=== PATIENT | female | born 1955 | race African-American/Black ===

== ENCOUNTER 2020-07-14 11:56 | Outpatient (CLI) | payer BC ==
--- NOTE | 2020-07-14 13:55 | MRI ---
MRI of thecervical spine: 07/14/2020 COMPARISON:None available HISTORY:Cervical radiculopathy, cervical pain radiating to bilateral shoulders, right greater than le ft TECHNIQUE: Multiplanar multisequence MR imaging of thecervical spine without contrast Findings:The sagittal STIR imaging demonstrates no focal area of osseous marrow edema. C2-3: There is mild disc space narrowing and mild bilateral facet hypertrophy. No significant central canal or neural foraminal stenosis. C3-4: There is disc space narrowing with disc desiccation and disc bulge. There is a superimposed maría tral disc protrusion which effaces the ventral thecal sac and abuts the ventral aspect of the cervical cord with mild central canal stenosis and mild narrowing. There is mild right and moderate l eft neural foraminal stenosis. C4-5: There is disc space narrowing with disc desiccation and disc bulge. Superimposed small left par acentral disc protrusion. There is moderate central canal stenosis with effacement of the ventral thecal sac and disc material abutting the ventral aspect of the cord. Facet and uncovertebral osteophyte formation causes moderate/severe bilateral neural foraminal stenos is, left greater than right. C5-6: There is disc space narrowing with disc desiccation and anterior osteophyte formation. There is prominent disc bulge with superimposed left paracentral disc protrusion causing severe central canal stenosis with flattening of the cervical cord. There is a focal area of increased T2 signal wit hin the cervical cord at the C5-6 level suggesting acute cord edema and/or myelomalacia.. Moderate/severe bilateral neural foraminal stenosis. C6-7: There is disc space narrowing with disc desiccation, disc bulge, and a central/left paracentral disc protrusion effacing the ventral thecal sac and abutting the ventral aspect of the cord with moderate central canal stenosis. There is moderate right and mild left neural foraminal stenosis. C7-T1: There is disc desiccation with mild disc space narrowing. There is mild bilateral facet hypert rophy. Mild bilateral neural foraminal stenosis. No central canal stenosis. The thyroid gland is enlarged and heterogeneous with numerous T2 hyperintense nodules, measuring up t o 1.5 cm on the left. Follow-up thyroid ultrasound advised. IMPRESSION:Prominent multilevel cervical spine degenerative change. This includes C5-6 disc pathology leading to severe central canal stenosis with cord flattening and a focus of increased T2 signal within the cord suggesting edema. Abnormal thyroid gland for which thyroid ultrasound is advised. Results discussed with Dr. Adama Pedraza at 1:50 PM 07/14/2020
== END 2020-07-14 11:57 | disposition home or self-care (01) ==
LOC: BICMRI 11:56
PROVIDERS: ATTEND Neurological Surgery
DX: M47.22 Other spondylosis with radiculopathy, cervical region (principal); M48.02 Spinal stenosis, cervical region; M47.813 Spondylosis without myelopathy or radiculopathy, cervicothoracic region; R94.6 Abnormal results of thyroid function studies
CPT/HCPCS: 72141

== ENCOUNTER 2020-12-26 15:02 | Outpatient (CLI) | payer MEDICARE ==
[2020-12-26 17:16] LABS: Anion Gap 15 mmol/L (10-20); BUN (Urea Nitrogen) 25 mg/dL (9.8-20.1); Calc. Creatinine Clearance 0 mL/min (70-130); Calcium 10.2 mg/dL (7.8-10.44); Carbon Dioxide 27 mmol/L (23-31); Chloride 104 mmol/L (98-107); Glucose 94 mg/dL (80-115); Potassium 4.3 mmol/L (3.5-5.1); Sodium 142 mmol/L (136-145)
[2020-12-27 13:27] LABS: SARS-CoV-2 PCR by NAA Not Detected (NotDetected)
== END 2020-12-26 15:03 | disposition home or self-care (01) ==
LOC: LABBT 15:02
PROVIDERS: ATTEND Neurological Surgery
DX: Z01.818 Encounter for other preprocedural examination (principal); M54.16 Radiculopathy, lumbar region; Z20.822 Contact with and (suspected) exposure to COVID-19
CPT/HCPCS: 80048; 93005; U0003; U0005; 93010

== ENCOUNTER 2023-02-05 11:58 | Outpatient (CLI) | payer OTHER | END 2023-02-05 11:59 | disposition home or self-care (01) | LOC: BICCT 11:58 | PROVIDERS: ATTEND Neurological Surgery | DX: M54.16 Radiculopathy, lumbar region (principal) | CPT/HCPCS: 72131 ==

== ENCOUNTER 2023-02-28 14:30 | Inpatient (IN) | payer OTHER ==
[2023-03-05] MEDS ORDERED: Bupivacaine PF 0.5% 30 ML VIAL ONE (08:41)
[2023-03-05] MEDS ORDERED: EPINEPHrine 1 MG/ML AMP ONE (08:41)
[2023-03-05] MEDS ORDERED: fentaNYL PF 100 MCG/2 ML SYRINGE ONE (09:34)
[2023-03-05] MEDS ORDERED: HYDROmorphone 0.5 MG/0.5 ML SYRINGE ONE (09:34)
[2023-03-05] MEDS ORDERED: Phenylephrine 10 MG/ML VIAL ONE (09:43)
[2023-03-05] MEDS ORDERED: Glycopyrrolate 0.2 MG/ML 5 ML SYRINGE ONE (10:01)
[2023-03-05] MEDS ORDERED: Ondansetron PF 4 MG/2 ML Vial ONE ×2 (10:01→18:54)
[2023-03-05] MEDS ORDERED: Rocuronium Bromide 10 MG/ML (10ML VIAL) ONE (10:01)
[2023-03-05] MEDS ORDERED: Lidocaine 1% PF 5 ML VIAL ONE (10:01)
[2023-03-05] MEDS ORDERED: PROPOFOL 200 MG/20 ML VIAL ONE (10:01)
[2023-03-05] MEDS ORDERED: NEOSTIGMINE 3 MG/3 ML SYR 3 MG/3 ML SYRINGE ONE (10:01)
[2023-03-05] MEDS ORDERED: ePHEDrine Sulfate 50 MG/10 ML VIAL ONE (10:01)
[2023-03-05] MEDS ORDERED: CEFAZOLIN 2 GM VIAL ONE ×2 (10:59→16:24)
[2023-03-05] MEDS ORDERED: Sodium Chloride 0.9% 100 ML ONE ×2 (10:59→16:24)
[2023-03-05] MEDS ORDERED: HYDROmorphone 2 MG/ML VIAL SLOW IVP PRN (11:42)
[2023-03-05] MEDS ORDERED: PACU-Morphine 4MG/ML VIAL SLOW IVP PRN (11:42)
[2023-03-05] MEDS ORDERED: Promethazine HCl 25 MG/ML VIAL IM PRN (11:42)
[2023-03-05] MEDS ORDERED: Ondansetron HCl/PF 4 MG/2 ML Vial IVP PRN (11:42)
[2023-03-05] MEDS ORDERED: Bacitracin Zinc Ointment 30 gm TUBE ONE (13:14)
[2023-03-05] MEDS ORDERED: fentaNYL 50 mcg/mL 1 mL Vial ONE ×2 (13:45→14:43)
[2023-03-05] MEDS ORDERED: Labetalol HCl 100 MG/20 ML VIAL ONE (14:27)
[2023-03-05] MEDS: CEFAZOLIN 2 GM in Sodium Chloride 0.9% 100 ML IVPB SCH (17:00)
[2023-03-05] MEDS ORDERED: Dexamethasone 4 mg/ml Vial ONE (17:04)
[2023-03-05] MEDS ORDERED: Cyclobenzaprine 10 MG TAB PO PRN (17:33)
[2023-03-05] MEDS ORDERED: Morphine 4 MG/ML VIAL SLOW IVP PRN (17:33)
[2023-03-05] MEDS ORDERED: Mag-Al 1200 mg/1200 mg/30 ML UDCUP PO PRN (17:33)
[2023-03-05] MEDS ORDERED: Ondansetron PF 4 MG/2 ML Vial IVP PRN (17:33)
[2023-03-05] MEDS ORDERED: HYDROcodone/Acetaminophen 10/325 mg Tablet PO PRN (17:33)
[2023-03-05] MEDS ORDERED: diphenhydrAMINE 50 MG/ML VIAL IVP PRN (17:33)
[2023-03-05] MEDS ORDERED: Morphine 2 MG/ML VIAL SLOW IVP PRN (17:33)
[2023-03-05] MEDS ORDERED: Labetalol HCl 100 MG/20 ML VIAL SLOW IVP PRN (19:11)
[2023-03-05] MEDS: hydrALAZINE 20 MG/ML VIAL SLOW IVP PRN ×2 (19:15→19:45)
[2023-03-05] MEDS ORDERED: hydrALAZINE 20 MG/ML VIAL ONE (19:15)
[2023-03-05] MEDS: Sodium Chloride 0.9% 1,000 ML IV SCH (19:26)
[2023-03-05] MEDS: tiZANidine HCl 4 MG TAB PO SCH (22:20)
[2023-03-05] MEDS: Gabapentin 400 MG CAP PO SCH (22:25)
[2023-03-05] MEDS: Atorvastatin Calcium 40 MG TAB PO SCH (22:25)
[2023-03-05] MEDS: HYDROcodone/Acetaminophen 10/325 mg Tablet PO PRN (22:25)
[2023-03-06] MEDS: CEFAZOLIN 2 GM in Sodium Chloride 0.9% 100 ML IVPB SCH (02:59)
[2023-03-06 03:38] VITALS: BMI 39.7
[2023-03-06] MEDS ORDERED: FLU VACC QS2023(65UP)/MF59C/PF 60 MCG/0.5 ML SYRINGE IM ONE (09:00)
[2023-03-06] MEDS: Sodium Chloride 0.9% 1,000 ML IV SCH ×2 (10:01→21:36)
[2023-03-06] MEDS: Gabapentin 300 MG CAP PO SCH (10:08)
[2023-03-06] MEDS: HYDROcodone/Acetaminophen 10/325 mg Tablet PO PRN ×2 (10:09→14:29)
[2023-03-06] MEDS: Lisinopril/Hydrochlorothiazide 20/25 mg Tablet PO SCH (10:12)
[2023-03-06] MEDS: Atenolol 50 MG TAB PO SCH (10:12)
[2023-03-06] MEDS: Gabapentin 400 MG CAP PO SCH (21:34)
[2023-03-06] MEDS: Atorvastatin Calcium 40 MG TAB PO SCH (21:35)
[2023-03-06] MEDS: tiZANidine HCl 4 MG TAB PO SCH ×2 (21:35→21:40)
[2023-03-07] MEDS: Lisinopril/Hydrochlorothiazide 20/25 mg Tablet PO SCH (09:30)
[2023-03-07] MEDS: HYDROcodone/Acetaminophen 10/325 mg Tablet PO PRN (09:30)
[2023-03-07] MEDS: Atenolol 50 MG TAB PO SCH (09:30)
[2023-03-07] MEDS: Gabapentin 300 MG CAP PO SCH (09:31)
[2023-03-07] MEDS: Sodium Chloride 0.9% 1,000 ML IV SCH ×2 (09:31→22:44)
[2023-03-07] MEDS: Gabapentin 400 MG CAP PO SCH (22:43)
[2023-03-07] MEDS: Atorvastatin Calcium 40 MG TAB PO SCH (22:44)
[2023-03-08] MEDS: HYDROcodone/Acetaminophen 10/325 mg Tablet PO PRN ×2 (04:20→10:14)
[2023-03-08] MEDS: Lisinopril/Hydrochlorothiazide 20/25 mg Tablet PO SCH (08:37)
[2023-03-08] MEDS: Gabapentin 300 MG CAP PO SCH (08:37)
[2023-03-08] MEDS: Atenolol 50 MG TAB PO SCH (08:38)
[2023-03-08] MEDS ORDERED: Bisacodyl 5 MG TAB PO PRN (17:11)
[2023-03-08] MEDS ORDERED: Milk Of Magnesia 30 ML UDCUP PO PRN (17:11)
[2023-03-08] MEDS ORDERED: Magnesium Citrate 300 ML BOT PO PRN (17:13)
[2023-03-08] MEDS: Sodium Chloride 0.9% 1,000 ML IV SCH (17:57)
[2023-03-08] MEDS: Atorvastatin Calcium 40 MG TAB PO SCH (20:49)
[2023-03-08] MEDS: Gabapentin 400 MG CAP PO SCH (20:49)
[2023-03-08] MEDS: Docusate 100 MG CAP PO SCH (20:49)
[2023-03-09] MEDS: Sodium Chloride 0.9% 1,000 ML IV SCH (01:40)
[2023-03-09] MEDS: HYDROcodone/Acetaminophen 10/325 mg Tablet PO PRN (06:45)
[2023-03-09] MEDS: Lisinopril/Hydrochlorothiazide 20/25 mg Tablet PO SCH (08:25)
[2023-03-09] MEDS: Gabapentin 300 MG CAP PO SCH (08:25)
[2023-03-09] MEDS: Docusate 100 MG CAP PO SCH (08:25)
[2023-03-09] MEDS: Atenolol 50 MG TAB PO SCH (08:26)
[2023-03-09 12:16] VITALS: BP 140/84; TEMP 97.8
== END 2023-03-09 13:54 | disposition home health service (06) | DRG 460 ==
LOC: SURG A 03-05 07:32
PROVIDERS: ADMIT Neurological Surgery; ATTEND Neurological Surgery
PROC: 0SG3071 Fusion of Lumbosacral Joint with Autologous Tissue Substitute, Posterior Approach, Posterior Column, Open Approach (ICD-10-PCS; principal; 2023-03-05)
PROC: 01NR0ZZ Release Sacral Nerve, Open Approach (ICD-10-PCS; 2023-03-05)
PROC: 01NB0ZZ Release Lumbar Nerve, Open Approach (ICD-10-PCS; 2023-03-05)
PROC: 3E033XZ Introduction of Vasopressor into Peripheral Vein, Percutaneous Approach (ICD-10-PCS; 2023-03-05)
DX: M48.061 Spinal stenosis, lumbar region without neurogenic claudication (principal); M51.16 Intervertebral disc disorders with radiculopathy, lumbar region; E11.9 Type 2 diabetes mellitus without complications; M19.90 Unspecified osteoarthritis, unspecified site; I10 Essential (primary) hypertension; G89.18 Other acute postprocedural pain; Z98.890 Other specified postprocedural states; Z98.1 Arthrodesis status; Z83.3 Family history of diabetes mellitus; Z82.49 Family history of ischemic heart disease and other diseases of the circulatory system; Z80.9 Family history of malignant neoplasm, unspecified
CPT/HCPCS: 36416; C1713; C1889; J0171; J0360; J1100; J1170; J2370; J2405; J2704; J3010; J3490; J7050; S0020

== ENCOUNTER 2023-02-28 14:38 | Outpatient (CLI) | payer OTHER ==
[2023-02-28 16:15] LABS: Anion Gap 13 mmol/L (10-20); BUN (Urea Nitrogen) 20 mg/dL (9.8-20.1); Calc. Creatinine Clearance 0 mL/min (70-130); Calcium 9.9 mg/dL (7.8-10.44); Carbon Dioxide 26 mmol/L (23-31); Chloride 107 mmol/L (98-107); Estimated GFR 77; Glucose 114 mg/dL (80-115); Potassium 4.3 mmol/L (3.5-5.1); Sodium 142 mmol/L (136-145)
== END 2023-02-28 14:39 | disposition home or self-care (01) ==
LOC: LABBT 14:38
PROVIDERS: ATTEND Neurological Surgery
DX: Z01.818 Encounter for other preprocedural examination (principal); M54.16 Radiculopathy, lumbar region
CPT/HCPCS: 80048; 93005; 93010